=== PATIENT | male | born 1935 | race Caucasian/White ===

== ENCOUNTER 2016-10-17 13:17 | Day surgery (SDC) | payer MEDICARE, BC | END 2016-10-17 14:20 | disposition home or self-care (01) | LOC: SSS 13:17 | DX: R51 Headache (principal); Z53.9 Procedure and treatment not carried out, unspecified reason; I48.2 Chronic atrial fibrillation; I10 Essential (primary) hypertension; E03.9 Hypothyroidism, unspecified; N52.9 Male erectile dysfunction, unspecified; M10.9 Gout, unspecified; J32.4 Chronic pansinusitis; Z88.1 Allergy status to other antibiotic agents; Z87.891 Personal history of nicotine dependence; Z90.49 Acquired absence of other specified parts of digestive tract; Z95.0 Presence of cardiac pacemaker; Z79.01 Long term (current) use of anticoagulants; Z98.890 Other specified postprocedural states ==

== ENCOUNTER 2016-10-18 07:38 | Day surgery (SDC) | payer MEDICARE, BC ==
--- NOTE | 2016-10-20 09:33 | OR ---
ADMIT: 10/18/2016 RM/LOC: [facility] MR#: [id number] [address] SABRINA GARRETT [address] [place] [address] Operative/Delivery Room Report SEX: M AGE: 81 : 1935 SURGERY DATE: 10/18/2016 SURGEON: Myron Cerrato MD PROCEDURE: Epidural blood patch. INDICATION: Headache, possible spontaneous CSF leak. The patient is an 81- year-old male who has been dealing with headaches for quite sometime. He has seen several specialists including ENT, and 2 different neurologists for evaluation of this. His sinuses have been ruled out as a cause of his headache and as part of the workup, the neurologist requests an epidural blood patch to evaluate if this headache could be a possible spontaneous cerebrospinal fluid leak. The patient does describe some postural symptoms such as headache getting better when he is laying down, particularly on his side and it does get worse when he is up, however, it does take about 30 minutes to present after he is up and around. He also describes the headache as being worsened by leaning or bending forward. He does not always have this headache going up and around and has no other neurological symptoms. The patient has been on Pradaxa for atrial fibrillation which has been held for 5 days. DESCRIPTION OF PROCEDURE: After informed consent was obtained, including explanations of risks, benefits, and alternatives, the patient elected to proceed with the procedure. He was placed in a sitting position. Sterile prep and drape were applied to the low back area. 1% lidocaine was introduced into the skin and subcutaneous tissues over the L4-5 interspace. An 18-gauge Tuohy needle was used with loss of resistance technique to locate the epidural space. The epidural space was encountered approximately 6 cm. Sterilely 20 mL the patient's blood was obtained from his right antecubital area by one of the nurses, this was passed sterilely to knee and injected slowly into the ADMIT: 10/18/2016 RM/LOC: [facility] MR#: [id number] [address] GARRETT BENNETT [address] [place] [address] Operative/Delivery Room Report SEX: M AGE: 81 : 1935 epidural space. The patient denied any sort of back pain or tightness during this injection. The needle was flushed and withdrawn. A Band-Aid was placed over the puncture site and the patient was placed in the supine position. The patient was then discharged to home with instructions to return here or to the emergency room with any sort of neurological symptoms including severe back pain, lower extremity numbness or weakness, loss of bowel or bladder control. The patient was also instructed to seek medical attention if he has any high fevers. The patient was allowed to restart his Pradaxa in 6 hours from the epidural blood patch, which he will do at home. He will follow up with his primary care provider and neurologist as needed. Myron Cerrato MD/ cristal JOB #: [id number] CC: Myron Cerrato, Attending Physician Rolando Shelton, Family Physician Rolando Shelton MD
== END 2016-10-18 08:33 | disposition home or self-care (01) ==
LOC: SSS 07:38
PROC: 3E0S3GC Introduction of Other Therapeutic Substance into Epidural Space, Percutaneous Approach (ICD-10-PCS; principal; 2016-10-18)
DX: G97.1 Other reaction to spinal and lumbar puncture (principal); Z88.8 Allergy status to other drugs, medicaments and biological substances